=== PATIENT | male | born 1985 | race Two or more races ===

== ENCOUNTER 2022-10-19 05:39 | Emergency (ER) | payer MEDICAID, OTHER ==
[~2022-10-19] VITALS: Ht 172.7 cm; Wt 110.0 kg
[2022-10-19 06:15] VITALS: PULSE 92; RESP 16; O2SAT 95
[2022-10-19] MEDS ORDERED: ONDANSETRON HCL 4 MG/2 ML VIAL IV ONE (06:15)
[2022-10-19] MEDS ORDERED: TETANUS-DIPTH-ACEL PERTUSSIS 0.5ML SYR Tdap IM ONE (06:15)
[2022-10-19] MEDS ORDERED: SODIUM CHLORIDE 0.9% 1,000 ML IV ONE (06:15)
[2022-10-19] MEDS ORDERED: HYDROmorphone HCL 2 MG/ML VL/or syr IM ONE (06:15)
[2022-10-19] MEDS ORDERED: HYDROmorphone HCL 2 MG/ML VL/or syr IV ONE (06:30)
[2022-10-19] MEDS ORDERED: IOHEXOL 300 MG/ML 100ML BOTTLE IJ ONE (06:52)
[2022-10-19 07:09] LABS: Basophils # (auto) 0 10 ^3/uL (0-0.2); Basophils % (auto) 0.4 % (0.0-2.0); Eosinophils # (auto) 0.1 10 ^3/uL (0-0.8); Eosinophils % (auto) 0.5 % (0.0-7.0); Hematocrit 43.4 % (41.0-53.0); Hemoglobin 14.6 g/dL (13.5-17.5); Lymphocytes # (auto) 1.5 10 ^3/uL (0.4-5.4); Lymphocytes % (auto) 14.2 % (10.0-50.0); Mean Corpuscular Hemoglobin 30.4 pg (28.0-32.0); Mean Corpuscular Hgb Conc. 33.6 g/dL (32.0-36.0); Mean Corpuscular Volume 90.5 fL (80.0-100.0); Monocytes # (auto) 0.6 10 ^3/uL (0-1.3); Monocytes % (auto) 5.3 % (0.0-12.0); Neutrophils # (auto) 8.6 10 ^3/uL (1.6-8.6); Neutrophils % (auto) 79.6 % (37.0-80.0); Red Cell Distribution Width 14.1 % (11.8-14.3); White Blood Cell 10.7 10^3/uL (4.4-10.8)
[2022-10-19 07:15] LABS: INR 1.04 (0.9-1.15); Partial Thromboplastin Time 29.4 SEC (24.5-34.5); Prothrombin Time 10.9 sec (9.3-11.8)
[2022-10-19 07:39] LABS: Potassium 3.5 mmol/L (3.5-5.1)
[2022-10-19 07:50] LABS: Albumin 3.5 g/dL (3.4-5.0); BUN/Creatinine Ratio 5.7 (10.0-20.0); Bilirubin, Total 0.2 mg/dL (0.2-1.0); Calcium 7.3 mg/dL (8.5-10.1); Total Protein 6.9 g/dL (6.4-8.2)
[2022-10-19 07:52] VITALS: PULSE 92; RESP 19; O2SAT 96
[2022-10-19] MEDS ORDERED: CEPH250C PO (09:41)
[2022-10-19] MEDS ORDERED: cefTRIAXone 1GM/50ML D5W 50 ML IV ONE (09:45)
[2022-10-19 11:00] VITALS: BP 129/63; PULSE 87; RESP 15; TEMP 98.1; O2SAT 93
== END 2022-10-19 11:35 | disposition home or self-care (01) ==
LOC: ER 05:39 → EDBD 05:39 → ER 11:17
DX: S80.812A Abrasion, left lower leg, initial encounter (principal); S00.83XA Contusion of other part of head, initial encounter; F17.210 Nicotine dependence, cigarettes, uncomplicated; V89.2XXA Person injured in unspecified motor-vehicle accident, traffic, initial encounter; Y93.89 Activity, other specified; Y92.89 Other specified places as the place of occurrence of the external cause; Y99.8 Other external cause status
CPT/HCPCS: 12001; 36415; 70450; 70486; 71260; 72125; 73130; 74177; 80053; 85025; 85610; 85730; 90471; 90715; 96361; 96365; 96375; 99285; J0696; J1170; J2405; J7030; Q9967